=== PATIENT | female | born 1965 | race Two or more races ===

== ENCOUNTER 2019-12-12 16:52 | Emergency (ER) | payer MEDICAID ==
[~2019-12-12] VITALS: Ht 147.3 cm; Wt 57.2 kg
[2019-12-12 19:05] VITALS: BP 124/80
--- NOTE | 2019-12-12 19:05 | NUR ---
ED Nurse Note: Pt walked in to er from home c/o right hand laceration. As per pt she washing a cup, it broke and cut her right hand. Not actively bleeding.
[2019-12-12] MEDS ORDERED: Tetanus/Diptheria/Pertussis IM ONE (19:45)
[2019-12-12] MEDS ORDERED: Bacitracin Oint UD TOPIC ONE (19:45)
[2019-12-12] MEDS ORDERED: Lidocaine 2% MPF 5ml Vial INJ ONE (19:45)
[2019-12-12] MEDS ORDERED: BACITRACIN15 GM TOPIC (21:04)
[2019-12-12] MEDS ORDERED: CEPHALEXIN500 MG ORAL (21:04)
[2019-12-12] MEDS ORDERED: TYLENOL EXTRA500 MG ORAL (21:04)
[2019-12-12 21:18] VITALS: BP 124/80
--- NOTE | 2019-12-12 21:18 | NUR ---
ED Nurse Note: Pt cleared by ERMD for discharge. DC instructions/prescription was given and explained to pt and verbalized understanding of teachings. All medical deviecs such as ID band removed. Pt is AAO x4, ambulatory and left with all personal belongings. Accompanied by family member.
--- NOTE | 2019-12-12 22:00 | Emergency Room Report ---
History of Present Illness General Chief Complaint: Laceration Source: Patient Present Illness HPI 54 YO Female presents to the ED c/o laceration to knuckle of the right index finger x2 hours. She reports 8/10 in severity pain. Patient reports she was washing a glass when she accidentally cut herself across the top of her finger. Patient reports she is right-hand dominant. She states she has pain with flexion and extension of the the right index finger. Patient reports she is able to extend the finger but this severely exacerbates her pain. She is not UTD with tetanus. She denies taking any blood thinning medications. Allergies: Coded Allergies: No Known Allergies (Unverified , 12/12/19) Patient History Past Medical History: see triage record Past Surgical History: none Pertinent Family History: none Now: No Reviewed Nursing Documentation: PMH: Agreed; PSxH: Agreed Nursing Documentation-PMH Past Medical History: No Stated History Review of Systems All Other Systems: negative except mentioned in HPI Physical Exam Vital Signs Date Time Temp Pulse Resp B/P (MAP) Pulse Ox O2 Delivery O2 Flow Rate FiO2 12/12/19 17:12 98.2 78 17 124/80 (95) 99 Room Air Sp02 EP Interpretation: reviewed, normal General Appearance: no apparent distress, alert, GCS 15, non-toxic Head: normocephalic, atraumatic Eyes: bilateral eye normal inspection, bilateral eye PERRL ENT: hearing grossly normal, normal voice Neck: full range of motion Respiratory: lungs clear, normal breath sounds, speaking full sentences Cardiovascular #1: regular rate, rhythm, normal capillary refill Musculoskeletal: normal range of motion, gait/station normal, tender - dorsum of the knuckle of the right index finger. no obvious visible tendon or tendon involvement, FROM Neurologic: alert, motor strength/tone normal, oriented x3, sensory intact, responsive, speech normal Psychiatric: judgement/insight normal Skin: laceration - 2 cm flap laceration on the knuckle of the right index finger. Lymphatic: no adenopathy Procedures Laceration/Wound Repair Laceration/Wound Repair : Consent: Verbal Wound Location: upper extremity - knuckle of the right index finger. Wound's Depth, Shape: flap Wound Length (cm): 2 Wound Explored: clean Irrigated w/ Saline (ccs): 500 Anesthesia: 1% Lidocaine Volume Anesthetic (ccs): 5 Wound Repaired With: sutures Suture Size/Type: 4:0 Number of Sutures: 5 Layer Closure?: No Sterile Dressing Applied?: Yes Splint Applied?: Yes - right long finger splint Type of Splint Applied: right long finger Sling Applied?: No Patient Tolerated: Well Complications: None Medical Decision Making PA Attestation Dr. Blue is my supervising Physician whom patient management has been discussed with. Diagnostic Impression: Primary Impression: Laceration ER Course 54 YO Female presents to the ED c/o laceration to knuckle of the right index finger x2 hours. She reports 8/10 in severity pain. Patient reports she was washing a glass when she accidentally cut herself across the top of her finger. Patient reports she is right-hand dominant. She states she has pain with flexion and extension of the the right index finger. Patient reports she is able to extend the finger but this severely exacerbates her pain. She is not UTD with tetanus. She denies taking any blood thinning medications. Ddx considered but are not limited to laceration, tendon injury, cellulitis, amputation Vital signs: are WNL, pt. is afebrile. H&PE are most consistent with: right index finger laceration approx 2 cm in length ORDERS: none required at this time, the diagnosis is clinical ED INTERVENTIONS: -Tetanus vaccine was administered as pt. vaccination status was unknown. - The wound was copiously irrigated with normal saline, and explored for foreign body for which no FB was found. - pt. is anesthetized with 1%lidocaine without epi. - The wound was approximated and closed using 5 interrupted 4.0 Ethilon sutures. -Bacitracin and sterile dressing is applied. -Right long index finger splint applied by supply technician. Pt. remains neurovascularly intact. Discussed with patient: That we make every effort to approximate the laceration as best as we can so that scarring will be as cosmetically pleasing as possible with our limited cosmetic skill set in the Emergency dept. Regardless of our best efforts there will be scarring after laceration repair. The extent of scarring is unknown at this time. DISCHARGE: At this time pt. is stable for d/c to home. Will provide printed patient care instructions, and any necessary prescriptions. Care plan and follow up instructions have been discussed with the patient prior to discharge. Last Vital Signs Date Time Temp Pulse Resp B/P (MAP) Pulse Ox O2 Delivery O2 Flow Rate FiO2 2/16/20 21:18 98.2 78 17 124/80 99 Room Air Disposition: HOME, SELF-CARE Condition: Stable Scripts Acetaminophen* (TYLENOL EXTRA STRENGTH*) 500 Mg Tablet 500 MG ORAL Q6H, #20 TAB 0 Refills Prov: Neha Rodriguez 12/12/19 Bacitracin (Bacitracin) 28.4 Gm Oint...g. 1 APPLIC TOPIC THREE TIMES A DAY, #28.3 GM Prov: Neha Rodriguez 12/12/19 Cephalexin* (KEFLEX*) 500 Mg Capsule 500 MG ORAL EVERY 12 HOURS for 7 Days, #14 CAP 0 Refills Prov: Neha Rodriguez 12/12/19 Referrals: NON PHYSICIAN (PCP) Patient Instructions: Laceration Care, Adult Additional Instructions: Take medications as directed. SUTURE REMOVAL IN 14 DAYS Follow up with a Primary Care Provider in 3-5 days, even if your symptoms have resolved. --Please review list of primary care clinics, if you do not already have a primary care provider Return sooner to ED if new symptoms occur, or current symptoms become worse. - Please note that this Emergency Department Report was dictated using [employer] in worker technology software, occasionally this can lead to erroneous entry secondary to interpretation by the dictation equipment. Neha Rodriguez Dec 12, 2019 22:00
== END 2019-12-12 21:18 | disposition home or self-care (01) ==
LOC: EMR 18:15
DX: S61.210A Laceration without foreign body of right index finger without damage to nail, initial encounter (principal); Z23 Encounter for immunization; W25.XXXA Contact with sharp glass, initial encounter; Y92.9 Unspecified place or not applicable
CPT/HCPCS: 12001; 90471; 90715; Z7502; 96374; 99283